=== PATIENT | female | born 1955 | race Two or more races ===

== ENCOUNTER → 2016-08-19 | Outpatient (CLI) | payer BC ==
[2016-08-19 13:23] LABS: BASOPHILS # (AUTO) 0.06 10*3/UL; BASOPHILS % (AUTO) 0.9 % (0-1); EOSINOPHILS # (AUTO) 0.27 10*3/UL; EOSINOPHILS % (AUTO) 4.2 % (0-8); HEMATOCRIT 46.1 % (37.0-47.0); HEMOGLOBIN 15.3 g/dL (12.0-16.0); LYMPHOCYTES # (AUTO) 1.52 10*3/uL; MEAN CORPUSCULAR HEMOGLOBIN 27.4 PG (27-31); MEAN CORPUSCULAR HGB CONC 33.2 g/dL (33-37); MEAN CORPUSCULAR VOLUME 82.5 FL (81-99); MEAN PLATELET VOLUME 10.6 FL (7.4-12.2); MONOCYTES # (AUTO) 0.39 10*3/UL (0.3-0.8); MONOCYTES % (AUTO) 6.1 % (5-15); NEUTROPHILS # (AUTO) 4.13 10*3/UL; NEUTROPHILS % (AUTO) 64.8 % (50-80); RED BLOOD COUNT 5.59 10^6/uL (4.20-5.40)
[2016-08-19 13:40] LABS: PLATELET MORPHOLOGY COMMENT NORMAL MORPHOLOGY (NORM); RBC MORPHOLOGY COMMENT NORMAL MORPHOLOGY (NORM); WBC MORPHOLOGY COMMENT NORMAL MORPHOLOGY (NORM)
[2016-08-19 13:44] LABS: CALCIUM 9.7 mg/dL (8.7-10.7); SERUM ALBUMIN 4.4 g/dL (3.5-4.8)
[2016-08-19 14:03] LABS: BILIRUBIN,URINE NEGATIVE (NEG); COLOR,URINE YELLOW; GLUCOSE, URINE (UA) NEGATIVE (NEG); NITRATE,URINE NEGATIVE (NEG); OCCULT BLOOD,URINE NEGATIVE (NEG); PH,URINE 5.5 (5.0-8.5); PROTEIN,URINE NEGATIVE (NEG); UROBILINOGEN,URINE 0.2 EU/dL (0.2)
[2016-08-19 14:21] LABS: CLARITY,URINE CLEAR (CLEAR)
[2016-08-19 14:23] LABS: URINE SAMPLE TYPE CLEAN CATCH URINE
== END ==
LOC: MOB LAB 11:57
PROVIDERS: ATTEND Nurse Practitioner Family
DX: R06.02 Shortness of breath (principal); R10.11 Right upper quadrant pain; R53.83 Other fatigue
CPT/HCPCS: 36415; 80053; 81003; 83880; 85025

== ENCOUNTER → 2016-09-17 | Outpatient (CLI) | payer BC ==
--- NOTE | 2016-09-17 13:04 | DI ---
HISTORY: Right upper quadrant abdominal pain. TECHNIQUE: Serial axial images of the abdomen with coronal and sagittal reformats. FINDINGS: There is a 3cm paraumbilical collection possibly post surgical in nature, i.e. a seroma, h owever abscess hard to exclude. The heart size is normal and the lung bases are clear. The liver and spleen are normal in size and contour and demonstrate no focal abnormalities. The gall bladder has been removed. There is no intra or extrahepatic biliary ductal dilatation is identified. The pancreas and adrenal glands are normal. The kidneys are in anatomic position. There is no evidence of renal calculi, hydronephrosis or solid renal masses. The limited visualized bowel, mesentery and omentum are unremarkable with no evidence of obstruction or perforation. IMPRESSION: 1. There is a 3cm paraumbilical collection possibly post surgical in nature, i.e. a seroma, however abscess hard to exclude. This collection appears grossly similar to 01/2016, although current study does not fully include the inferior extent of the collection.
== END ==
LOC: CT 09:00
PROVIDERS: ATTEND Surgery
DX: R10.11 Right upper quadrant pain (principal)
CPT/HCPCS: 74160

== ENCOUNTER → 2016-09-19 | Outpatient (CLI) | payer BC ==
[2016-09-19 12:15] LABS: CALCIUM 8.8 mg/dL (8.7-10.7); CHOL/HDL RATIO 2.27 RATIO (0-4.0); LDL CHOLESTEROL,CALCULATED 63.6 mg/dL
== END ==
LOC: MOB LAB 11:04
PROVIDERS: ATTEND Nurse Practitioner Family
DX: E03.9 Hypothyroidism, unspecified (principal); E78.5 Hyperlipidemia, unspecified; I10 Essential (primary) hypertension
CPT/HCPCS: 36415; 80048; 82247; 82465; 82550; 82977; 83718; 84075; 84443; 84450; 84460; 84478